=== PATIENT | female | born 1955 | race Caucasian/White ===

== ENCOUNTER 2018-10-06 17:01 | Emergency (ER) | payer MEDICARE ==
[~2018-10-06] VITALS: Ht 152.4 cm; Wt 72.0 kg
[~2018-10-06 17:01] MED LIST: CIPR500T4 PO; DOCU-144 PO; IBUP800T48 PO; METR500T PO
[2018-10-06 17:09] VITALS: Ht 152.4 cm; Wt 72.0 kg
[2018-10-06] MEDS ORDERED: SOD CHLORIDE 0.9% 500 ML IV STA (20:49)
[2018-10-06] MEDS ORDERED: morphine 4 MG/ML VIAL IV STA (20:49)
[2018-10-06] MEDS ORDERED: LIDOCAINE/MYLANTA 40 ML BTL PO STA (20:49)
[2018-10-06] MEDS ORDERED: ONDANSETRON 4 MG INJ IV STA (20:49)
[2018-10-06] MEDS ORDERED: FAMOTIDINE 20 MG TAB PO STA (20:49)
[2018-10-06] MEDS ORDERED: metroNIDAZOLE 500 MG TAB PO ONE (23:30)
[2018-10-06] MEDS ORDERED: CIPROFLOXACIN 500 MG TAB PO ONE (23:30)
[2018-10-07 00:01] VITALS: BP 138/86; PULSE 62; RESP 14
== END 2018-10-07 00:01 | disposition home or self-care (01) ==
LOC: E/R 17:01
DX: K57.32 Diverticulitis of large intestine without perforation or abscess without bleeding (principal)
CPT/HCPCS: 74176; 80053; 83690; 85025; 96374; 96375; 99285; J2270; J2405; J7040